=== PATIENT | female | born 1940 | race Caucasian/White ===

== ENCOUNTER → 2018-06-12 09:10 | Outpatient (CLI) | payer MEDICARE, BC ==
--- NOTE | ~2018-06-12 | ST ---
PATIENT:AMAN MUNSON MEDICAL RECORD: [id number] SEX: F LOCATION:[facility] ORDER #: ADMISSION DATE: 06/12/18 AGE OF PATIENT: 77 REFERRING PHYSICIAN: INTERPRETING PHYSICIAN: BRETT WONG MD REFERRING PHYSICIAN: Patrick Richter DO TECHNOLOGIST: MYRNA Toth/RIGHT Karl (N) CLINICIAN: Ashlee Del Valle RN CLINICAL INDICATIONS: 1. Chest pain. 2. Hypertension. 3. Hyperlipidemia. PHARMACOLOGIC STRESS PROCEDURE: 1. The patient performed a chemical stress test at rest receiving 0.4 mg Lexiscan by rapid IV injection over 10-15 seconds. 2. This was followed by 5 mL of normal saline both administered by above Clinician. 3. The tracer was administered IV 10-20 second post saline flush per protocol by Technologist. 4. The heart rate was 55 at baseline and was 84 at peak infusion. 5. The blood pressure response was normal. B/P was 171/82 at baseline, 154/74 at peak infusion. 6. The patient had no complaints of angina or anginal equivalent discomfort. 7. The patient had no complaints of shortness of breath following injection of Lexiscan. 8. No significant arrhythmias were observed. 9. The electrocardiogram demonstrated no ST changes suggestive of ischemia. 10. The electrocardiogram demonstrated a normal response to Lexiscan. 11. Normal response to Lexiscan pharmacological stress testing. REST STUDY: DATE: 06/12/18 HOUR: 09:30 RADIOISOTOPE: Cardiolite 99m Tc VOLUME: 0.6 mL ACTIVITY: 10.6 mCi METHOD OF ADMIN: IV SCAN STARTED: (hour) 10:45 STRESS STUDY: DATE: 06/12/18 HOUR: 11:00 RADIOISOTOPE: Cardiolite 99m Tc VOLUME: 0.6 mL ACTIVITY: 32.9 mCi METHOD OF ADMIN: IV SCAN STARTED: (hour) 12:00 GATED IMAGING: Gated SPECT reveals a preserved ejection fraction of 67% with good wall motion, thickening, and brightening throughout all segments. SPECT: SPECT imaging was performed using Cardiolite as the myocardial perfusion imaging agent. There is homogeneous uptake throughout all segments but no evidence CARDIAC STRESS TEST [id number] AMAN MUNSON of inducible ischemia or previous infarction. OVERALL IMPRESSION: 1. This is a normal nuclear stress test with no evidence of inducible ischemia or previous infarction. 2. Gated SPECT reveals a preserved ejection fraction of 67%. 3. In this patient with ongoing symptomatology, the current scan has a low likelihood of hemodynamically significant coronary artery disease. 4. Would evaluate noncardiac etiology chest discomfort. BRETT WONG MD at 1856 CC: [id number] DICTATION DATE: 06/12/18 6638 DEPARTMENT [employer]: DM 06/13/18 1410 DEP CLI 06/12/18 [facility] [address] [place] [address]
== END | disposition home or self-care (01) ==
LOC: D.HCCARDIO 09:10
DX: R07.9 Chest pain, unspecified (principal)

== ENCOUNTER → 2018-08-06 07:42 | Outpatient (CLI) | payer MEDICARE, BC | END | disposition home or self-care (01) | LOC: D.CT 07:42 | DX: H53.9 Unspecified visual disturbance (principal); M54.2 Cervicalgia; G45.9 Transient cerebral ischemic attack, unspecified ==

== ENCOUNTER → 2019-03-08 09:16 | Outpatient (CLI) | payer MEDICARE, BC | END | disposition home or self-care (01) | LOC: D.US 09:00 | PROVIDERS: ATTEND Family Medicine | DX: G45.9 Transient cerebral ischemic attack, unspecified (principal); H53.9 Unspecified visual disturbance ==

== ENCOUNTER → 2019-04-12 13:53 | Outpatient (CLI) | payer MEDICARE, BC | END | disposition home or self-care (01) | LOC: D.MRI 13:53 | PROVIDERS: ATTEND Family Medicine | DX: M54.16 Radiculopathy, lumbar region (principal) ==